=== PATIENT | male | born 1960 | race Caucasian/White ===

== ENCOUNTER → 2017-01-11 | Outpatient (CLI) | payer BC ==
[~2017-01-11] MED LIST: MULT1CAP27 PO
[2017-01-11 09:43] LABS: RED BLOOD COUNT 5.01 10^6/uL (4.35-5.85); RED CELL DISTRIBUTION WIDTH 13.7 % (10.0-14.5); WHITE BLOOD COUNT 6.2 10^3/uL (4.3-11.0)
[2017-01-11 09:59] LABS: BLOOD UREA NITROGEN 15 MG/DL (7-18); BUN/CREATININE RATIO 16; CREATININE SERUM 0.96 MG/DL (0.60-1.30); GFR ESTIMATED > 60
[2017-01-11 10:21] LABS: THYROID STIMULATING HORMONE 0.87 UIU/ML (0.35-4.94)
== END ==
LOC: LAB 09:29
PROVIDERS: ATTEND Otolaryngology Otolaryngology/Facial Plastic Surgery
DX: H93.A3 Pulsatile tinnitus, bilateral (principal); R51 Headache; R06.83 Snoring; R53.83 Other fatigue
CPT/HCPCS: 36415; 82565; 84443; 84520; 85027

== ENCOUNTER → 2017-01-17 | Outpatient (CLI) | payer BC | LOC: RAD 09:42 | PROVIDERS: ATTEND Otolaryngology Otolaryngology/Facial Plastic Surgery | DX: H93.A3 Pulsatile tinnitus, bilateral (principal); R51 Headache ==

== ENCOUNTER 2017-02-06 09:11 | Outpatient (CLI) | payer BC | END 2017-02-06 09:34 | disposition home or self-care (01) | LOC: SLEEP 09:11 | PROVIDERS: ATTEND Otolaryngology Otolaryngology/Facial Plastic Surgery | DX: G47.33 Obstructive sleep apnea (adult) (pediatric) (principal); I10 Essential (primary) hypertension ==

== ENCOUNTER → 2018-05-16 | Outpatient (CLI) | payer BC ==
--- NOTE | 2018-05-16 17:56 | Diagnostic Imaging Report ---
INDICATION: Lower respiratory infection. PA and lateral chest. FINDINGS: Heart size and pulmonary vascularity are normal. Lungs are clear. There are no effusions or pneumothoraces. IMPRESSION: Negative chest. Dictated by: Dictated on workstation # [id number]
== END ==
LOC: RAD 14:49
DX: J22 Unspecified acute lower respiratory infection (principal)
CPT/HCPCS: 71046

== ENCOUNTER → 2020-06-04 | Outpatient (CLI) | payer BC ==
--- NOTE | 2020-06-04 12:18 | Diagnostic Imaging Report ---
INDICATION: Knee pain. Decreased range of motion. COMPARISON: None. FINDINGS: 3 views of the left knee joint demonstrate no acute fracture or dislocation. No focal osseous lesions are seen. Small suprapatellar joint effusion is noted. Note is also made of mild osteoarthritic changes. The surrounding soft tissue structures are unremarkable. There are no radiopaque foreign bodies. IMPRESSION: 1. Mild joint effusion, but no radiographic evidence of acute fracture or dislocation of the left knee. Dictated by: Dictated on workstation # [id number]
== END ==
LOC: RAD 11:29
DX: M25.462 Effusion, left knee (principal)
CPT/HCPCS: 73562